=== PATIENT | male | born 1980 | race Hispanic/Latino ===

== ENCOUNTER 2020-04-05 09:18 | Emergency (ER) | payer SELFPAY ==
[2020-04-05 10:15] LABS: Urine Blood 3+ (NEG); Urine Glucose NEGATIVE (NEG); Urine Protein NEGATIVE (NEG); Urine pH 6.5 (5.0-7.0)
--- NOTE | 2020-04-05 10:20 | EDPHYS ---
Physician Documentation [facility] Name: Jose Luis Morales Age: 39 yrs Sex: Male : 1980 Arrival Date: 04/05/2020 Time: 09:21 Bed 6 Private MD: ED Physician Flo Salcido HPI: 04/05 09:55 This 39 yrs old Male presents to ER via Ambulatory with complaints of Pain kdr With Urination, Blood In Urine. 09:55 The patient presents with urinary symptoms, dribbling of urine, dysuria, urinary kdr frequency, blood in urine. Onset: The symptoms/episode began/occurred Friday. Modifying factors: The symptoms are alleviated by nothing, the symptoms are aggravated by urinating. Associated signs and symptoms: The patient has no apparent associated signs or symptoms. Severity of symptoms: At their worst the symptoms were mild, moderate, just prior to arrival, in the emergency department the symptoms are unchanged. The patient has not experienced similar symptoms in the past. The patient has been recently seen by a physician: Went to another facility yesterday and told he had kidney stones. Historical: - Allergies: 09:36 No Known Allergies; iw - Home Meds: 09:36 None [Active]; iw - PMHx: 09:36 acid reflux; iw - PSHx: 09:36 right eye; iw - Immunization history:: Adult Immunizations up to date. - Social history:: Smoking status: Patient denies any tobacco usage or history of. ROS: 10:10 Constitutional: Negative for fever, chills, and weight loss, Eyes: Negative for injury, kdr pain, redness, and discharge, ENT: Negative for injury, pain, and discharge, Neck: Negative for injury, pain, and swelling, Cardiovascular: Negative for chest pain, palpitations, and edema, Respiratory: Negative for shortness of breath, cough, wheezing, and pleuritic chest pain, Abdomen/GI: Negative for abdominal pain, nausea, vomiting, diarrhea, and constipation, Back: Negative for injury and pain, MS/Extremity: Negative for injury and deformity, Skin: Negative for injury, rash, and discoloration, Neuro: Negative for headache, weakness, numbness, tingling, and seizure activity. Psych: Negative for depression, anxiety, suicide ideation, homicidal ideation, and hallucinations, Allergy/Immunology: Negative for hives, rash, and allergies, Endocrine: Negative for neck swelling, polydipsia, polyuria, polyphagia, and marked weight changes, Hematologic/Lymphatic: Negative for swollen nodes, abnormal bleeding, and unusual bruising. 10:10 : Positive for urinary symptoms, small amounts, hematuria, burning with urination, kdr difficulty urinating. Exam: 10:10 Constitutional: This is a well developed, well nourished patient who is awake, alert, kdr and in no acute distress. Head/Face: Normocephalic, atraumatic. Eyes: Pupils equal round and reactive to light, extra-ocular motions intact. Lids and lashes normal. Conjunctiva and sclera are non-icteric and not injected. Cornea within normal limits. Periorbital areas with no swelling, redness, or edema. Vital Signs: 09:32 BP 123 / 98; Pulse 102; Resp 16 S; Pulse Ox 97% on R/A; Weight 97.07 kg; Height 5 ft. 9 iw in. (175.26 cm); Pain 4/10; 09:40 Temp 98.9(O); iw 09:32 Body Mass Index 31.60 (97.07 kg, 175.26 cm) iw MDM: 10:19 Patient medically screened. kdr 17:18 Data reviewed: vital signs, nurses notes, lab test result(s). Counseling: I had a kdr detailed discussion with the patient and/or guardian regarding: the historical points, exam findings, and any diagnostic results supporting the discharge/admit diagnosis, lab results, the need for outpatient follow up. 04/05 09:39 Order name: Urine Dipstick--Ancillary (enter results) bd 04/05 10:12 Order name: GC (GONORR/CHLAMYDIA) Probe kdr 04/05 09:29 Order name: Urine Dipstick-Ancillary (obtain specimen); Complete Time: 10:25 kdr Administered Medications: 10:37 Drug: Pyridium 200 mg Route: PO; aa5 10:37 Follow up: Response: Medication administered at discharge. aa5 10:37 Follow up: Response: No adverse reaction aa5 10:37 Follow up: Response: Medication administered at discharge. aa5 10:37 Drug: Cipro 500 mg Route: PO; aa5 10:37 Follow up: Response: Medication administered at discharge. aa5 10:37 Follow up: Response: Medication administered at discharge. aa5 Disposition: 04/05/20 10:19 Discharged to Home. Impression: Urinary tract infection, site not specified. - Condition is Stable. - Prescriptions for Pyridium 200 mg Oral Tablet - take 1 tablet by ORAL route every 8 hours for 3 days; 9 tablet. Cipro 500 mg Oral Tablet - take 1 tablet by ORAL route every 12 hours for 7 days; 14 tablet. Tramadol 50 mg Oral Tablet - take 1 tablet by ORAL route every 8 hours as needed; 12 tablet. - Medication Reconciliation Form, Thank You Letter, Antibiotic Education, Prescription Opioid Use form. - Follow up: Private Physician; When: 2 - 3 days; Reason: If symptoms return, Further diagnostic work-up, Recheck today's complaints, Continuance of care, Re-evaluation by your physician. - Problem is new. - Symptoms are unchanged. Signatures: Dispatcher [employer] EDMS Flo Salcido MD MD [facility] Deborah Eagle RN RN iw Vivian Child RN RN aa5 Corrections: (The following items were deleted from the chart) 10:12 10:10 Constitutional: Negative for fever, chills, and weight loss, Eyes: Negative for kdr injury, pain, redness, and discharge, ENT: Negative for injury, pain, and discharge, Neck: Negative for injury, pain, and swelling, Cardiovascular: Negative for chest pain, palpitations, and edema, Respiratory: Negative for shortness of breath, cough, wheezing, and pleuritic chest pain, Abdomen/GI: Negative for abdominal pain, nausea, vomiting, diarrhea, and constipation, Back: Negative for injury and pain, MS/Extremity: Negative for injury and deformity, Skin: Negative for injury, rash, and discoloration, Neuro: Negative for headache, weakness, numbness, tingling, and seizure activity. Psych: Negative for depression, anxiety, suicide ideation, homicidal ideation, and hallucinations, Allergy/Immunology: Negative for hives, rash, and allergies, Endocrine: Negative for neck swelling, polydipsia, polyuria, polyphagia, and marked weight changes, Hematologic/Lymphatic: Negative for swollen nodes, abnormal bleeding, and unusual bruising, kdr 10:37 10:19 04/05/2020 10:19 Discharged to Home. Impression: Urinary tract infection, site aa5 not specified. Condition is Stable. Forms are Medication Reconciliation Form, Thank You Letter, Antibiotic Education, Prescription Opioid Use. Follow up: Private Physician; When: 2 - 3 days; Reason: If symptoms return, Further diagnostic work-up, Recheck today's complaints, Continuance of care, Re-evaluation by your physician. Problem is new. Symptoms are unchanged. kdr
--- NOTE | 2020-04-05 10:20 | ER ---
Nurse's Notes [facility] Name: Jose Luis Morales Age: 39 yrs Sex: Male : 1980 Arrival Date: 04/05/2020 Time: 09:21 Bed 6 Private MD: Diagnosis: Urinary tract infection, site not specified Presentation: 04/05 09:32 Chief complaint: Patient states: started having pain with urination on Friday, blood in iw urine and back pain radiating to left groins started last night. Chief complaint:. Coronavirus screen: Patient denies a cough. Patient denies shortness of breath or difficulty breathing. Patient denies measured and/or subjective temperature greater than 100.4F prior to today's visit. Patient denies travel on a cruise ship or to a country the [facility] currently lists as an affected area. Patient denies contact with known and/or suspected case of COVID-19. Ebola Screen: Patient negative for fever greater than or equal to 101.5 degrees Fahrenheit, and additional compatible Ebola Virus Disease symptoms Patient denies exposure to infectious person. Patient denies travel to an Ebola-affected area in the 21 days before illness onset. No symptoms or risks identified at this time. Initial Sepsis Screen: Does the patient meet any 2 criteria? No. Patient's initial sepsis screen is negative. Does the patient have a suspected source of infection? No. Patient's initial sepsis screen is negative. Risk Assessment: Do you want to hurt yourself or someone else? Patient reports no desire to harm self or others. Onset of symptoms was April 03, 2020. 09:32 Method Of Arrival: Ambulatory iw 09:32 Acuity: VINCE 3 iw Historical: - Allergies: 09:36 No Known Allergies; iw - Home Meds: 09:36 None [Active]; iw - PMHx: 09:36 acid reflux; iw - PSHx: 09:36 right eye; iw - Immunization history:: Adult Immunizations up to date. - Social history:: Smoking status: Patient denies any tobacco usage or history of. Screenin:40 Abuse screen: Denies threats or abuse. Nutritional screening: No deficits noted. aa5 Tuberculosis screening: No symptoms or risk factors identified. Fall Risk None identified. Assessment: 09:40 General: Appears comfortable, Behavior is calm, cooperative. Pain: Denies pain. Neuro: aa5 Level of Consciousness is awake, alert, obeys commands, Oriented to person, place, time, situation. Cardiovascular: Heart tones S1 S2 present Rhythm is regular. Respiratory: Airway is patent Respiratory effort is even, unlabored, Respiratory pattern is regular, symmetrical. GI: No signs and/or symptoms were reported involving the gastrointestinal system. : Reports pain with urination, Reports dysuria and hematuria. EENT: No signs and/or symptoms were reported regarding the EENT system. Derm: Skin is pink, warm \T\ dry. Musculoskeletal: Range of motion: intact in all extremities. 10:37 Reassessment: Patient is alert, oriented x 3, equal unlabored respirations, skin aa5 warm/dry/pink. Vital Signs: 09:32 BP 123 / 98; Pulse 102; Resp 16 S; Pulse Ox 97% on R/A; Weight 97.07 kg; Height 5 ft. 9 iw in. (175.26 cm); Pain 4/10; 09:40 Temp 98.9(O); iw 09:32 Body Mass Index 31.60 (97.07 kg, 175.26 cm) iw ED Course: 09:21 Patient arrived in ED. ag5 09:23 Flo Salcido MD is Attending Physician. kdr 09:35 Triage completed. iw 09:36 Arm band placed on. iw 09:40 Vivian Child, RN is Primary Nurse. aa5 09:40 Patient has correct armband on for positive identification. Bed in low position. Call aa5 light in reach. Side rails up X 1. 10:35 No provider procedures requiring assistance completed. Patient did not have IV access aa5 during this emergency room visit. Administered Medications: 10:37 Drug: Pyridium 200 mg Route: PO; aa5 10:37 Follow up: Response: Medication administered at discharge. aa5 10:37 Follow up: Response: No adverse reaction aa5 10:37 Follow up: Response: Medication administered at discharge. aa5 10:37 Drug: Cipro 500 mg Route: PO; aa5 10:37 Follow up: Response: Medication administered at discharge. aa5 10:37 Follow up: Response: Medication administered at discharge. aa5 Outcome: 10:19 Discharge ordered by . kdr 10:35 Discharged to home ambulatory. aa5 10:35 Condition: good 10:35 Discharge instructions given to patient, Instructed on discharge instructions, follow up and referral plans. medication usage, Demonstrated understanding of instructions, follow-up care, medications. 10:35 Prescriptions given X 3. aa5 10:37 Patient left the ED. aa5 Signatures: Flo Salcido MD MD kdr Deborah Eagle RN RN iw Vivian Child RN RN aa5 Bakari Bazan Sulma
[2020-04-05] MEDS ORDERED: CIPROFLOXACIN HCL 500 MG TAB ONE (10:40)
[2020-04-05] MEDS ORDERED: PHENAZOPYRIDINE 100MG TAB PO ONE (10:40)
[2020-04-05 10:41] VITALS: BP 123/98; O2SAT 97
[2020-04-05 10:42] VITALS: TEMP 98.9
== END 2020-04-05 10:37 | disposition home or self-care (01) ==
LOC: ER 09:18
DX: N39.0 Urinary tract infection, site not specified (principal)
CPT/HCPCS: 81003; 87490; 87590; 99283